=== PATIENT | female | born 1980 | race African-American/Black ===

== ENCOUNTER 2022-11-13 06:15 | Inpatient (IN) | payer OTHER, BC ==
[2022-11-13] MEDS ORDERED: ELECTROLYTE-148 SOLN 500 ML IV ONE (06:30)
[2022-11-13] MEDS ORDERED: CITRIC ACID/SODIUM CITRATE 30 ML UNIT-DOSE CUP PO ONE (06:30)
[2022-11-13 06:43] VITALS: BMI 39.0
[2022-11-13] MEDS ORDERED: ELECTROLYTE-148 SOLN 1,000 ML IV SCH ×2 (07:00→09:15)
[2022-11-13] MEDS ORDERED: LIGASURE IMPACT TP ONE (07:39)
[2022-11-13] MEDS ORDERED: DEXAMETHASONE SOD PHOSPHATE 4 MG/1 ML VIAL ONE (07:54)
[2022-11-13] MEDS ORDERED: ONDANSETRON 4 MG/2 ML VIAL ONE (07:54)
[2022-11-13] MEDS ORDERED: morphine SULFATE/PF 1 MG/2 ML (2cc Syringe - QUVA) ONE (07:54)
[2022-11-13] MEDS ORDERED: ceFAZolin SODIUM 1 GM VIAL ONE (07:54)
[2022-11-13] MEDS ORDERED: ACETAMINOPHEN INJECTION 100 ML IVPB ONE (08:07)
[2022-11-13] MEDS ORDERED: OXYTOCIN 20 UNITS in 0.9% NS 40 UNIT/2,000 ML INFUS.BAG IV ONE (08:07)
[2022-11-13] MEDS ORDERED: METHYLERGONOVINE MALEATE 0.2 MG/1 ML AMP IM PRN (09:18)
[2022-11-13] MEDS ORDERED: ACETAMINOPHEN 325 MG TABLET (FP) PO PRN (09:18)
[2022-11-13] MEDS ORDERED: SENNOSIDES/DOCUSATE COMBO (SENNA PLUS) TABLET (UD) PO PRN (09:18)
[2022-11-13] MEDS ORDERED: OXYTOCIN 10 UNITS/ML VIAL ONE (09:49)
[2022-11-13] MEDS: PRENATAL VITAMINS W/ FOLIC ACID TABLET (FP) PO SCH (10:00)
[2022-11-13] MEDS: FERROUS SO4 325 MG TABLET (FP) PO SCH ×2 (10:00→22:00)
[2022-11-13 10:46] LABS: CORD BASE EXCESS -0.3 mmol/L (0-2); CORD HCO3 25.5 mmHg (20-29); CORD pH 7.362 (7.14-7.44)
[2022-11-13] MEDS ORDERED: ONDANSETRON 4 MG/2 ML VIAL IVPUSH PRN (10:46)
[2022-11-13] MEDS ORDERED: ACETAMINOPHEN 1000 MG/100 ML BAG IVPB PRN (10:47)
[2022-11-13 10:50] LABS: CORD BASE EXCESS -4.8 mmol/L (0-2); CORD HCO3 21.8 mmHg (20-29); CORD PCO2 45.8 mmHg (30-78); CORD pH 7.295 (7.14-7.44)
[2022-11-13] MEDS: OXYTOCIN 20 UNITS in 0.9% NS 20 UNIT/1,000 ML INFUS.BAG IV SCH ×2 (11:46→16:00)
[2022-11-13] MEDS ORDERED: oxyCODONE HCL 5 MG TABLET PO PRN ×2 (21:18)
[2022-11-14] MEDS ORDERED: BISACODYL 10 MG SUPP.RECT RC PRN (09:18)
[2022-11-14 09:51] LABS: BASO % 0.2 % (0-2.0); EOS % 0.5 % (0-4.5); HEMATOCRIT 27.3 % (32.4-45.2); HEMOGLOBIN 8.7 GM/dL (10.7-15.3); MCH 25.3 pg (25.7-33.7); MEAN CELL VOLUME 79.1 fl (80-96); MEAN PLT VOLUME 8.9 fl (7.5-11.1); MONO % 8.1 % (3.8-10.2); NEUT % 70.2 % (42.8-82.8); PLATELET COUNT 190 10^3/uL (134-434); RBC 3.45 M/mm3 (3.60-5.2); RDW 16.6 % (11.6-15.6); WHITE BLOOD COUNT 12.7 K/mm3 (4.0-10.0)
[2022-11-14] MEDS: FERROUS SO4 325 MG TABLET (FP) PO SCH ×2 (10:12→22:12)
[2022-11-14] MEDS: PRENATAL VITAMINS W/ FOLIC ACID TABLET (FP) PO SCH (10:12)
[2022-11-14] MEDS: IBUPROFEN 600 MG TABLET (FP) PO PRN (19:04)
[2022-11-14] MEDS: SIMETHICONE 80 MG TAB.CHEW (FP) PO PRN ×2 (19:04→23:14)
[2022-11-15] MEDS: IBUPROFEN 600 MG TABLET (FP) PO PRN ×2 (09:35→22:27)
[2022-11-15] MEDS: PRENATAL VITAMINS W/ FOLIC ACID TABLET (FP) PO SCH (09:35)
[2022-11-15] MEDS: FERROUS SO4 325 MG TABLET (FP) PO SCH ×2 (09:42→21:31)
[2022-11-15] MEDS: SIMETHICONE 80 MG TAB.CHEW (FP) PO PRN ×2 (17:18→22:26)
[2022-11-15 23:24] VITALS: RESP 16
[2022-11-16] MEDS: IBUPROFEN 600 MG TABLET (FP) PO PRN ×2 (06:31→10:34)
[2022-11-16 07:51] LABS: BASO % 0.3 % (0-2.0); EOS % 2.3 % (0-4.5); HEMATOCRIT 29.4 % (32.4-45.2); HEMOGLOBIN 9.8 GM/dL (10.7-15.3); LYMPH % 16.2 % (8-40); MCH 26.2 pg (25.7-33.7); MCHC 33.3 g/dl (32.0-36.0); MEAN CELL VOLUME 78.6 fl (80-96); MEAN PLT VOLUME 8.1 fl (7.5-11.1); NEUT % 76.2 % (42.8-82.8); PLATELET COUNT 229 10^3/uL (134-434); RBC 3.74 M/mm3 (3.60-5.2); RDW 16.5 % (11.6-15.6); WHITE BLOOD COUNT 9.7 K/mm3 (4.0-10.0)
[2022-11-16] MEDS: PRENATAL VITAMINS W/ FOLIC ACID TABLET (FP) PO SCH (10:34)
[2022-11-16] MEDS: FERROUS SO4 325 MG TABLET (FP) PO SCH (10:34)
[2022-11-16 12:01] VITALS: BP 125/83; PULSE 70; TEMP 98.2
== END 2022-11-16 12:55 | disposition home or self-care (01) | DRG 783 ==
LOC: JLDR 06:15 → J3W 13:00
PROVIDERS: ADMIT Obstetrics & Gynecology; ATTEND Obstetrics & Gynecology
PROC: 10D00Z1 Extraction of Products of Conception, Low, Open Approach (ICD-10-PCS; principal; 2022-11-13)
PROC: 0UT70ZZ Resection of Bilateral Fallopian Tubes, Open Approach (ICD-10-PCS; 2022-11-13)
DX: O34.219 Maternal care for unspecified type scar from previous cesarean delivery (principal); O60.14X0 Preterm labor third trimester with preterm delivery third trimester, not applicable or unspecified; O34.13 Maternal care for benign tumor of corpus uteri, third trimester; D25.9 Leiomyoma of uterus, unspecified; O36.63X0 Maternal care for excessive fetal growth, third trimester, not applicable or unspecified; Z30.2 Encounter for sterilization; Z3A.38 38 weeks gestation of pregnancy; Z37.0 Single live birth
CPT/HCPCS: 36415; 36600; 82803; 85025; 88302-TC; 88307-TC; 94010